=== PATIENT | male | born 1985 | race Caucasian/White ===

== ENCOUNTER 2025-08-13 11:31 | Emergency (ER) | payer OTHER ==
[~2025-08-13] VITALS: Ht 180.3 cm; Wt 86.2 kg
[2025-08-13 12:00] LABS: BASOPHILS ABSOLUTE AUTO 0.02 K/mm3 (0.00-0.23); BASOPHILS PERCENT AUTO 0 % (0-2); EOSINOPHILS ABSOLUTE AUTO 0.06 K/mm3 (0.00-0.68); EOSINOPHILS PERCENT AUTO 1 % (0-6); Hematocrit 39.4 % (37.0-53.0); Hemoglobin 13.7 g/dL (13.5-17.5); IMMATURE GRAN ABSOLUTE AUTO 0.01 K/mm3 (0.00-0.10); IMMATURE GRAN PERCENT AUTO 0 % (0-1); LYMPHOCYTES ABSOLUTE AUTO 2.36 K/mm3 (0.84-5.20); LYMPHOCYTES PERCENT AUTO 48 % (21-46); MONOCYTES ABSOLUTE AUTO 0.49 K/mm3 (0.16-1.47); MONOCYTES PERCENT AUTO 10 % (4-13); Mean Corpuscular HGB Conc 34.8 g/dL (31.5-36.5); Mean Corpuscular Volume 90 fL (80-100); NEUTROPHILS ABSOLUTE AUTO 1.99 K/mm3 (1.96-9.15); NEUTROPHILS PERCENT AUTO 40 % (41-73); NRBC ABSOLUTE 0.00 K/mm3 (0.00-0.02); NRBC Auto 0.0 /100 WBC (0.0-0.2); Platelet Count 252 K/mm3 (150-400); RDW Coefficient Variation 12.3 % (11.7-14.2); RDW Standard Deviation 40.6 fL (35.1-46.3)
[2025-08-13 14:01] LABS: Alanine Aminotransfer (ALT/SGP 34.0 U/L (12-78); Albumin, Blood 3.7 g/dL (3.4-5.0); Albumin/Globulin Ratio 1.1 (0.8-1.8); Anion Gap 9.0 mmol/L (3-11); Aspartate Aminotrans (AST/SGOT 16.0 U/L (12-37); Bilirubin, Total 0.5 mg/dL (0.1-1.0); Blood Urea Nitrogen 16.0 mg/dL (8-24); CO2, Blood 23.0 mmol/L (21-32); Calcium, Blood 8.5 mg/dL (8.5-10.1); Chloride, Blood 109.0 mmol/L (98-108); Creatinine, Blood 0.92 mg/dL (0.60-1.20); Globulin, Blood 3.5 g/dL (2.2-4.0); Glucose, Blood 105.0 mg/dL (70-99); Potassium, Blood 3.5 mmol/L (3.5-5.5); Sodium, Blood 137.0 mmol/L (136-145); Total Protein, Blood 7.2 g/dL (6.4-8.2)
== END 2025-08-13 15:11 | disposition home or self-care (01) ==
LOC: ER 11:31
PROVIDERS: Physician Assistant
DX: R07.89 Other chest pain (principal); R00.2 Palpitations; R10.9 Unspecified abdominal pain
CPT/HCPCS: 71046; 80053; 83690; 84484; 85025; 93005; 93010; 99284-25